=== PATIENT | male | born 1945 | race Caucasian/White ===

== ENCOUNTER 2016-03-23 11:51 | Outpatient (CLI) | payer MEDICARE, OTHER | END 2016-03-23 11:52 | disposition home or self-care (01) | DX: G47.10 Hypersomnia, unspecified (principal) | CPT/HCPCS: 99214; G0463 ==

== ENCOUNTER 2016-04-06 19:25 | Outpatient (CLI) | payer MEDICARE, OTHER | END 2016-04-06 19:26 | disposition home or self-care (01) | DX: Z53.9 Procedure and treatment not carried out, unspecified reason (principal) ==

== ENCOUNTER 2016-08-13 08:48 | Outpatient (CLI) | payer MEDICARE, OTHER ==
[2016-08-13 14:09] LABS: ALBUMIN/GLOBULIN RATIO 1.5 (1.0-2.2); BILIRUBIN,TOTAL 0.8 mg/dL (0.2-1.0); CALCIUM 9.3 mg/dL (8.5-10.3); CREATININE 0.7 mg/dL (0.6-1.2); POTASSIUM 3.8 mmol/L (3.5-5.0); TOTAL PROTEIN 6.7 g/dL (6.7-8.2)
== END 2016-08-13 08:49 | disposition home or self-care (01) ==
LOC: LAB.WCP 08:48
PROVIDERS: ATTEND Physician Assistant Medical
DX: G62.9 Polyneuropathy, unspecified (principal)
CPT/HCPCS: 36415; 80053; 82607; 84207; 84425

== ENCOUNTER 2016-09-30 08:14 | Outpatient (CLI) | payer MEDICARE, OTHER ==
--- NOTE | 2016-09-30 11:18 | XRAY Report ---
THREE VIEW RIGHT KNEE: 09/30/2016 CLINICAL HISTORY: Knee pain. FINDINGS: The osseous structures are intact. There is no fracture, focus of destruction or malalignm ent. The soft tissues are normal. A small suprapatellar joint effusion is incidental. IMPRESSION: SMALL SUPRAPATELLAR JOINT EFFUSION. NO ACUTE PROCESS. JOB #: [id number] EXT JOB #:[id number]
== END 2016-09-30 08:15 | disposition home or self-care (01) ==
LOC: DI 08:14
PROVIDERS: ATTEND Physician Assistant Medical
DX: M25.561 Pain in right knee (principal)

== ENCOUNTER 2016-10-01 08:45 | Outpatient (CLI) | payer MEDICARE, OTHER ==
[2016-10-01 13:45] LABS: HEMOGLOBIN A1C 0.82 g/dL
[2016-10-01 13:52] LABS: ALBUMIN/GLOBULIN RATIO 1.4 (1.0-2.2); BILIRUBIN,TOTAL 0.2 mg/dL (0.2-1.0); BUN - BLOOD UREA NITROGEN 26 mg/dL (6-20); CALCIUM 9.5 mg/dL (8.5-10.3); CARBON DIOXIDE - CO2 30 mmol/L (21-32); CHLORIDE 102 mmol/L (101-111); CHOL/HDL RATIO 4.6 (<5.0); CHOLESTEROL 246 mg/dL; CREATININE 0.8 mg/dL (0.6-1.2); GFR - MDRD 96 (>89); GLUCOSE 113 mg/dL (70-100); HDL CHOLESTEROL 54 mg/dL; LDL/HDL RATIO 2.2 (<3.6); POTASSIUM 4.8 mmol/L (3.5-5.0); SODIUM 138 mmol/L (135-145); TRIGLYCERIDES 373 mg/dL; VLDL CHOLESTEROL 75 mg/dL
[2016-10-01 13:54] LABS: BASOPHILS # (AUTO) 0.1 10^3/uL (0.0-0.1); BASOPHILS % (AUTO) 0.6 %; EOSINOPHILS # (AUTO) 0.3 10^3/uL (0.0-0.7); EOSINOPHILS % (AUTO) 3.5 %; HCT - HEMATOCRIT 47.9 % (42.0-52.0); HGB - HEMOGLOBIN 15.9 g/dL (14.0-18.0); LYMPHOCYTES # (AUTO) 2.2 10^3/uL (1.5-3.5); LYMPHOCYTES % (AUTO) 23.3 %; MEAN CORPUSCULAR HEMOGLOBIN 29.8 pg (27.0-31.0); MEAN CORPUSCULAR HGB CONC 33.3 g/dL (32.0-36.0); MEAN CORPUSCULAR VOLUME 89.5 fL (80.0-94.0); MEAN PLATELET VOLUME 7.6 fL (7.4-11.4); MONOCYTES # (AUTO) 0.9 10^3/uL (0.0-1.0); MONOCYTES % (AUTO) 9.1 %; NEUTROPHILS # (AUTO) 6.1 10^3/uL (1.5-6.6); NEUTROPHILS % (AUTO) 63.5 %; NUCLEATED RED BLOOD CELLS AUTO 0.1 /100WBC; RED BLOOD COUNT 5.35 10^6/uL (4.70-6.10); RED CELL DISTRIBUTION WIDTH 13.4 % (12.0-15.0); UNCORRECTED WHITE BLOOD COUNT 9.5 x10^3/uL; WHITE BLOOD COUNT 9.5 x10^3/uL (4.8-10.8)
== END 2016-10-01 08:46 ==
LOC: LAB.WCP 08:45
PROVIDERS: ATTEND Physician Assistant Medical
DX: I10 Essential (primary) hypertension (principal); Z12.5 Encounter for screening for malignant neoplasm of prostate; Z79.899 Other long term (current) drug therapy; E78.9 Disorder of lipoprotein metabolism, unspecified; R73.9 Hyperglycemia, unspecified
CPT/HCPCS: 36415; 80053; 80061; 83036; 84443; 85025; G0103; 84153

== ENCOUNTER 2016-11-17 14:18 | Outpatient (CLI) | payer MEDICARE, OTHER | END 2016-11-17 14:19 | LOC: LAB.WCP 14:18 | PROVIDERS: ATTEND Urology | DX: N40.1 Benign prostatic hyperplasia with lower urinary tract symptoms (principal) | CPT/HCPCS: 36415; 84153 ==

== ENCOUNTER 2017-04-15 12:49 | Outpatient (CLI) | payer MEDICARE, OTHER | END 2017-04-15 12:50 | disposition home or self-care (01) | LOC: DI 12:49 | PROVIDERS: ATTEND Physician Assistant Medical | DX: I51.7 Cardiomegaly (principal) | CPT/HCPCS: 93306 ==

== ENCOUNTER 2017-06-07 13:09 | Outpatient (CLI) | payer MEDICARE, OTHER | END 2017-06-07 13:10 | disposition home or self-care (01) | LOC: LAB 13:09 | PROVIDERS: ATTEND Orthopaedic Surgery | DX: Z01.812 Encounter for preprocedural laboratory examination (principal) | CPT/HCPCS: 36415; 86850; 86900; 86901 ==

== ENCOUNTER 2017-06-08 06:54 | Inpatient (IN) | payer MEDICARE, OTHER ==
[2017-06-08] MEDS ORDERED: ceFAZolin 2 GM/50 ML 2 GM/50 ML BAG IV ONE (07:05)
[2017-06-08] MEDS ORDERED: CELECOXIB 100 MG CAPSULE PO ONE (07:06)
[2017-06-08] MEDS ORDERED: LACTATED RINGERS 1,000 ML IV ONE (07:32)
[2017-06-08] MEDS ORDERED: EPINEPHrine 1 MG/ML AMP ONE (07:37)
[2017-06-08] MEDS ORDERED: ROPIVACAINE 0.5% PF 20 ML AMPULE ONE (07:37)
[2017-06-08] MEDS ORDERED: SODIUM CHLORIDE 0.9% 30 ML ONE (07:39)
[2017-06-08 07:53] LABS: BASOPHILS # (AUTO) 0.1 10^3/uL (0.0-0.1); BASOPHILS % (AUTO) 0.6 %; HGB - HEMOGLOBIN 15.6 g/dL (14.0-18.0); LYMPHOCYTES # (AUTO) 1.6 10^3/uL (1.5-3.5); LYMPHOCYTES % (AUTO) 18.4 %; MEAN CORPUSCULAR HEMOGLOBIN 30.1 pg (27.0-31.0); MEAN CORPUSCULAR HGB CONC 33.5 g/dL (32.0-36.0); MEAN CORPUSCULAR VOLUME 89.7 fL (80.0-94.0); MEAN PLATELET VOLUME 6.9 fL (7.4-11.4); MONOCYTES # (AUTO) 0.4 10^3/uL (0.0-1.0); MONOCYTES % (AUTO) 4.3 %; NEUTROPHILS # (AUTO) 6.7 10^3/uL (1.5-6.6); NEUTROPHILS % (AUTO) 76.7 %; PLT - PLATELET COUNT 336 10^3/uL (130-450); RED BLOOD COUNT 5.18 10^6/uL (4.70-6.10); RED CELL DISTRIBUTION WIDTH 13.4 % (12.0-15.0); WHITE BLOOD COUNT 8.8 x10^3/uL (4.8-10.8)
[2017-06-08 08:07] LABS: CALCIUM 9.4 mg/dL (8.5-10.3); CREATININE 0.6 mg/dL (0.6-1.2)
[2017-06-08] MEDS ORDERED: KETOROLAC 15 MG/ML VIAL IVP ONE (09:06)
[2017-06-08] MEDS ORDERED: MORPHINE PF 5 MG/10 ML AMP SUBQ ONE (09:07)
[2017-06-08] MEDS ORDERED: EPINEPHrine 1 MG/ML AMP IV ONE (09:09)
[2017-06-08] MEDS ORDERED: BUPIVACAINE 0.5% PF 30 ML VIAL SUBQ ONE (09:09)
[2017-06-08] MEDS ORDERED: ROPIVACAINE 0.2% PF 20 ML AMPULE SUBQ ONE (09:09)
[2017-06-08] MEDS: LACTATED RINGERS 1,000 ML IV ONE (09:12)
[2017-06-08] MEDS ORDERED: PROPOFOL 200 MG/20 ML VIAL IVP ONE (10:01)
[2017-06-08] MEDS ORDERED: LIDOCAINE-MPF 2% 5 ML VIAL IM ONE (10:01)
[2017-06-08] MEDS ORDERED: IPRATROPIUM/ALBUTEROL 3 ML NEB INH PRN (10:25)
--- NOTE | 2017-06-08 10:25 | OPERATIVE REPORT ---
Operative Report - General Admit Date: 06/08/17 Procedure Date: 06/08/17 Planned Procedure: right total knee replacement Pre-Op Diagnosis: Right knee osteoarthritis Procedure Performed: Right total knee arthroplasty Post Op Diagnosis: same - Procedure Note Primary Surgeon: uche Anesthesia Provider: Dr. Foy Anesthesia Technique: Combo spinal/epidural Estimated Blood Loss (mL): 50
[2017-06-08] MEDS ORDERED: ACETAMINOPHEN 1,000 MG/100 ML 100 ML IV PRN (10:26)
[2017-06-08] MEDS ORDERED: ACETAMINOPHEN 325 MG TABLET PO PRN (10:26)
[2017-06-08] MEDS ORDERED: PROCHLORPERAZINE 10 MG/2 ML VIAL IVP PRN (10:26)
[2017-06-08] MEDS ORDERED: ONDANSETRON 4 MG/2 ML VIAL IVP PRN (10:26)
[2017-06-08] MEDS ORDERED: BISACODYL 10 MG SUPP PR PRN (10:29)
[2017-06-08] MEDS ORDERED: SENNA 8.6 MG TABLET PO PRN (10:29)
[2017-06-08] MEDS ORDERED: ALBUTEROL NEB 2.5 MG/3 ML INH PRN (10:47)
[2017-06-08] MEDS: LACTATED RINGERS 1,000 ML IV SCH ×2 (11:15→19:54)
--- NOTE | 2017-06-08 12:54 | XRAY Report ---
TWO VIEW RIGHT KNEE: 06/08/2017 CLINICAL INDICATION: Postop. COMPARISON: 09/30/2016. FINDINGS: Frontal and lateral views of the right knee demonstrate a total knee replacement in place. Subcutaneous gas is seen. There is no evidence of acute fracture or hardware complication. IMPRESSION: EXPECTED POSTOPERATIVE APPEARANCE OF RIGHT KNEE REPLACEMENT. TD: 06/08/2017 12:54
[2017-06-08] MEDS: MORPHINE 2 MG/ML SYRINGE IVP PRN ×2 (13:17→19:50)
[2017-06-08] MEDS: SODIUM CHLORIDE FLUSH 0.9% 10 ML SYRINGE IVP PRN ×2 (13:18→18:30)
--- NOTE | 2017-06-08 14:01 | OPERATIVE REPORT ---
DATE OF SERVICE: 06/08/2017 Physician: Mague Pina MD PREOPERATIVE DIAGNOSIS: Right knee osteoarthritis. POSTOPERATIVE DIAGNOSIS: Right knee osteoarthritis. PROCEDURE PERFORMED: Right cemented total knee arthroplasty. OPERATING SURGEON: Mague Pina MD ANESTHESIA: Spinal and sedation by Dr. Fernandez INDICATIONS FOR SURGERY: The patient is a 71-year-old male with progressive osteoarthritis of his right knee. He has failed conservative care over an extended period of time and presents now for total knee arthroplasty. FINDINGS AT SURGERY: Patient was noted to have range of motion 0-120 degrees with normal ligament stability. At open surgery, he was found to have an effusion of the knee and fairly aggressive osteophytes on the medial aspect of the femur and tibia, and lesser osteophytes on the lateral side. His medial meniscus was essentially absent. Lateral meniscus was present as a healthy meniscus. Cruciate ligaments were intact. Chondral surfaces showed [id number] articulation on the medial aspect with both femur and tibial plateau involved. The patient's bone density was good. DESCRIPTION OF OPERATIVE PROCEDURE: The patient was taken to the operating room, given a spinal anesthetic in the supine position on the OR table. His limb was sterilely prepped and draped in standard fashion. Surgical timeout was undertaken. The patient's knee was then exsanguinated and a curved medial incision was made, followed by a medial parapatellar incision, and dissection carried down to the joint. Fluid was evacuated from the joint and a careful reflection was done of the posteromedial tissues on the tibia back to the posterior corner, and a resection of some of the fat pad was done to gain exposure. The anterior horn of the lateral meniscus was excised and the ACL was excised. The knee was then able to be flexed and the patella everted and the knee exposed. A rongeur was used to remove osteophytes from around the patella and the knee, and a central medullary hole was made in the femur for the distal cutting block application and this was applied and the distal cut made. Following this, the sizer block was applied and initial sizing was for an 8, but after making the initial anterior cut we sized down to a size 7. The 4-in-1 cuts were then made and extra osteophytes were removed. The retractors were then positioned around the tibial plateau and the proximal tibia block was applied with the external tower and alignment guide. Once the block was fixed in place, the proximal resection was done and it seemed that the PCL insertion had been destabilized so the remaining PCL was excised. Posterior osteophytes were checked for, there were none of substance on the femur. The knee was sized for a size E tibial baseplate, with the baseplate trial secured with pins and reaming and broaching performed, followed by trial reduction of the implants. Once this was successfully achieved, the patella was exposed and a conservative 8 mm resection was done of the patellar surface. Sizing was for a size 32 patella and recreating with the thickness of the patella with the 8.5 thickness. Trial components were removed. The knee was flushed and irrigated, and prepared for cementing of the implants, which were drawn into the field cementing first the tibial tray and then inserting the old medial congruent poly size 12 liner followed by cementing the femoral component, size 7, and ultimately cementing the patellar component with cement removal from all components at the periphery with the knee in extension and proving excellent range of motion and stability. The cement was allowed to harden. The knee was then flushed and irrigated beginning with a bath of dilute iodine solution that was allowed to sit in the knee, followed by flushing with the pulse lavage and then infiltrating with a cocktail of components of Marcaine and Toradol and pain medicine infiltrated in the tissues. Following this, the closure of the knee was undertaken after deflating the tourniquet. Bleeding was controlled and then closure undertaken with FiberWire suture interrupted in the medial retinaculum, followed by 0 and 2-0 Vicryl in the subcutaneous tissues and 3-0 Monocryl suture in skin. A silver-containing dressing was applied. The patient's knee was overwrapped with padding and ABDs and an Isidoro wrap, and he was taken to recovery room in stable condition. ESTIMATED BLOOD LOSS: About 50 mL COMPLICATIONS: None. SPONGE AND NEEDLE COUNTS: Correct. COMPONENTS USED: Size 7 Persona normal femur, a size E tibial tray, a 12 mm medial congruent poly, and a size 32 x 8.5 mm polyethylene patella. TD: 06/08/2017 14:01
[2017-06-08] MEDS ORDERED: HYDROmorphone 1 MG/ML CARPUJECT IVP ONE (14:33)
[2017-06-08] MEDS: SODIUM CHLORIDE FLUSH 0.9% 10 ML SYRINGE IVP SCH (16:35)
[2017-06-08] MEDS: ceFAZolin 2 GM/50 ML 2 GM/50 ML BAG IV SCH (17:27)
[2017-06-08] MEDS: HYDROcod/ACETAM 5/325 MG TABLET PO PRN (17:27)
[2017-06-08] MEDS: HYDROmorphone 1 MG/ML CARPUJECT IVP PRN ×2 (18:30→23:38)
[2017-06-08] MEDS ORDERED: BUDESONIDE 0.5 MG/2 ML NEB INH SCH (19:00)
[2017-06-08] MEDS: GABAPENTIN 300 MG CAPSULE PO SCH (20:37)
[2017-06-09] MEDS: ceFAZolin 2 GM/50 ML 2 GM/50 ML BAG IV SCH (01:59)
[2017-06-09] MEDS: HYDROcod/ACETAM 5/325 MG TABLET PO PRN ×5 (02:02→19:31)
[2017-06-09] MEDS: SODIUM CHLORIDE FLUSH 0.9% 10 ML SYRINGE IVP SCH ×5 (03:11→15:51)
[2017-06-09] MEDS: HYDROmorphone 1 MG/ML CARPUJECT IVP PRN ×4 (05:03→16:00)
[2017-06-09] MEDS: SODIUM CHLORIDE FLUSH 0.9% 10 ML SYRINGE IVP PRN (05:03)
[2017-06-09 06:13] LABS: BASOPHILS % (AUTO) 0.3 %; EOSINOPHILS % (AUTO) 1.4 %; HGB - HEMOGLOBIN 12.3 g/dL (14.0-18.0); LYMPHOCYTES % (AUTO) 17.7 %; MEAN CORPUSCULAR HEMOGLOBIN 29.6 pg (27.0-31.0); MEAN CORPUSCULAR VOLUME 89.9 fL (80.0-94.0); MEAN PLATELET VOLUME 7.5 fL (7.4-11.4); MONOCYTES % (AUTO) 12.3 %; NEUTROPHILS % (AUTO) 68.3 %; PLT - PLATELET COUNT 264 10^3/uL (130-450); RED BLOOD COUNT 4.15 10^6/uL (4.70-6.10); RED CELL DISTRIBUTION WIDTH 13.4 % (12.0-15.0)
[2017-06-09 06:16] LABS: CALCIUM 8.4 mg/dL (8.5-10.3); CREATININE 0.6 mg/dL (0.6-1.2)
[2017-06-09 06:18] LABS: ABNORMAL LYMPHS % (MANUAL) 0 %; BAND NEUTROPHILS % (MANUAL) 0 %
[2017-06-09] MEDS: LACTATED RINGERS 1,000 ML IV SCH (06:43)
[2017-06-09] MEDS: PANTOPRAZOLE 40 MG TABLET PO SCH (06:44)
[2017-06-09 06:49] LABS: EOSINOPHILS # (MANUAL) 0.1 10^3/uL (0-0.7); LYMPHOCYTES # (MANUAL) 2.2 10^3/uL (1.5-3.5); LYMPHOCYTES % (MANUAL) 11 %; MONOCYTES # (MANUAL) 1.4 10^3/uL (0.0-1.0); NEUTROPHILS # (MANUAL) 10.2 10^3/uL (1.5-6.6); NEUTROPHILS % (MANUAL) 73 %
[2017-06-09 06:51] LABS: DIFFERENTIAL COMMENT MANUAL DIFFERENTIAL; PLATELET ESTIMATE, MANUAL NORMAL (130-450,000) (NORMAL); PLATELET MORPHOLOGY NORMAL APPEARANCE (NORMAL); RBC MORPHOLOGY (MULTIPLE) 1+ STOMATOCYTES (NORMAL)
--- NOTE | 2017-06-09 07:20 | PROVIDER PROGRESS NOTE ---
Subjective - General Admit Date: 06/08/17 Procedure Date: 06/08/17 Post Op Days: 1 Procedure Performed: right total knee arthroplasty - Review of Systems Wound/Incisions: positive: Dressing dry and intact Musculoskeletal: positive: Joint pain Skin: positive: No symptoms Psychiatric: positive: No symptoms Objective - Patient Data Reviewed Vital Signs: Yes Vital Signs: Vital Signs x48h Temp Pulse Resp BP Pulse Ox 06/09/17 04:50 36.6 C 67 16 113/70 94 06/08/17 23:45 36.7 C 63 16 117/62 93 Weight: Weight 06/07/17 06/08/17 06/09/17 23:59 23:59 23:59 Weight (kg) 76.8 kg Intake & Output: Intake and Output Totals x24h 06/07/17 06/08/17 06/09/17 23:59 23:59 23:59 Intake Total 1675 1011.667 Output Total 1275 600 Balance 400 411.667 - Lab Results Lab Results: 06/09/17 05:36 06/09/17 05:36 Other Lab Results: Lab Results x24hrs 06/09/17 06/09/17 06/08/17 Range/Units 05:36 05:36 07:45 WBC 14.0 H (4.8-10.8) x10^3/uL RBC 4.15 L (4.70-6.10) 10^6/uL Hgb 12.3 L (14.0-18.0) g/dL Hct 37.3 L (42.0-52.0) % MCV 89.9 (80.0-94.0) fL MCH 29.6 (27.0-31.0) pg MCHC 33.0 (32.0-36.0) g/dL RDW 13.4 (12.0-15.0) % Plt Count 264 (130-450) 10^3/uL MPV 7.5 (7.4-11.4) fL Neut # Not Reportable (1.5-6.6) 10^3/uL Lymph # Not Reportable (1.5-3.5) 10^3/uL [place] # Not Reportable (0.0-1.0) 10^3/uL Eos # Not Reportable (0.0-0.7) 10^3/uL Baso # Not Reportable (0.0-0.1) 10^3/uL Absolute Nucleated RBC Not Reportable x10^3/uL Total Counted 100 Band Neuts % (Manual) 0 (0 - 10) % Reactive Lymphs % (Man) 5 % Abnorm Lymph % (Manual) 0 % Nucleated RBC % Not Reportable /100WBC Neutrophils # (Manual) 10.2 H (1.5-6.6) 10^3/uL Lymphocytes # (Manual) 2.2 (1.5-3.5) 10^3/uL Monocytes # (Manual) 1.4 H (0.0-1.0) 10^3/uL Eosinophils # (Manual) 0.1 (0-0.7) 10^3/uL Basophils # (Manual) 0.0 (0-0.1) 10^3/uL Differential Comment MANUAL DIFFERENTIAL Platelet Estimate NORMAL (130-450,000) (NORMAL) Platelet Morphology NORMAL APPEARANCE (NORMAL) RBC Morph Micro Appear 1+ STOMATOCYTES (NORMAL) Sodium 133 L 137 (135-145) mmol/L Potassium 3.8 4.3 (3.5-5.0) mmol/L Chloride 101 102 (101-111) mmol/L Carbon Dioxide 27 26 (21-32) mmol/L Anion Gap 5.0 L 9.0 (6-13) BUN 16 17 (6-20) mg/dL Creatinine 0.6 0.6 (0.6-1.2) mg/dL Estimated GFR (MDRD) 133 133 (>89) Glucose 135 H 142 H (70-100) mg/dL Calcium 8.4 L 9.4 (8.5-10.3) mg/dL 06/08/17 Range/Units 07:45 WBC 8.8 (4.8-10.8) x10^3/uL RBC 5.18 (4.70-6.10) 10^6/uL Hgb 15.6 (14.0-18.0) g/dL Hct 46.5 (42.0-52.0) % MCV 89.7 (80.0-94.0) fL MCH 30.1 (27.0-31.0) pg MCHC 33.5 (32.0-36.0) g/dL RDW 13.4 (12.0-15.0) % Plt Count 336 (130-450) 10^3/uL MPV 6.9 L (7.4-11.4) fL Neut # 6.7 H (1.5-6.6) 10^3/uL Lymph # 1.6 (1.5-3.5) 10^3/uL [place] # 0.4 (0.0-1.0) 10^3/uL Eos # 0.0 (0.0-0.7) 10^3/uL Baso # 0.1 (0.0-0.1) 10^3/uL Absolute Nucleated RBC 0.00 x10^3/uL Total Counted Band Neuts % (Manual) (0 - 10) % Reactive Lymphs % (Man) % Abnorm Lymph % (Manual) % Nucleated RBC % 0.0 /100WBC Neutrophils # (Manual) (1.5-6.6) 10^3/uL Lymphocytes # (Manual) (1.5-3.5) 10^3/uL Monocytes # (Manual) (0.0-1.0) 10^3/uL Eosinophils # (Manual) (0-0.7) 10^3/uL Basophils # (Manual) (0-0.1) 10^3/uL Differential Comment Platelet Estimate (NORMAL) Platelet Morphology (NORMAL) RBC Morph Micro Appear (NORMAL) Sodium (135-145) mmol/L Potassium (3.5-5.0) mmol/L Chloride (101-111) mmol/L Carbon Dioxide (21-32) mmol/L Anion Gap (6-13) BUN (6-20) mg/dL Creatinine (0.6-1.2) mg/dL Estimated GFR (MDRD) (>89) Glucose (70-100) mg/dL Calcium (8.5-10.3) mg/dL - Imaging Results Radiology Imaging: positive: EMP read indepedently - Current Medications Current Medications: Current Medications Generic Name Dose Route Start Last Admin Trade Name Freq PRN Reason Stop Dose Admin Acetaminophen/Hydrocodone Bitart 1 tab 06/08/17 10:29 06/09/17 06:44 [place] 5/325 PO 1 tab Q4HR PRN Administration PAIN Gabapentin 300 mg 06/08/17 21:00 06/08/17 20:37 Neurontin PO 300 mg QPM WYATT Administration Hydromorphone HCl 1 mg 06/08/17 15:12 06/09/17 05:03 Dilaudid Inj Carp IVP 1 mg Q4HR PRN Administration PAIN Lactated Ringer's 1,000 mls @ 100 mls/hr 06/08/17 11:00 06/09/17 06:43 Lr IV 100 mls/hr .Q10H WYATT Administration Morphine Sulfate 2 mg 06/08/17 10:29 06/08/17 19:50 Morphine IVP 2 mg Q2HR PRN Administration PAIN Pantoprazole Sodium 40 mg 06/09/17 07:00 06/09/17 06:44 Protonix PO 40 mg QDAC WYATT Administration Sodium Chloride 10 ml 06/08/17 17:00 06/09/17 03:11 Normal Saline Flush 0.9% IVP Not Given 0100,0900,1700 WYATT Sodium Chloride 10 ml 06/08/17 10:26 06/09/17 05:03 Normal Saline Flush 0.9% IVP 10 ml PRN PRN Administration NEEDED PER PROVIDER ORDERS - Physical Exam Wound/Incisions: positive: Dressing dry and intact General Appearance: positive: No acute distress ENT: positive: ENT inspection nml Respiratory: positive: No respiratory distress Abdomen: positive: Non-tender Neurologic/Psychiatric: positive: Oriented x3, CN's nml (2-12), Motor nml, Sensation nml, Mood/affect nml Impression/Plan - Problem List Problem List: POd #1 Pain control OK Pt to progress with PT at this time. decrease IV fluids.
[2017-06-09] MEDS: MULTIVITAMIN TABLET PO SCH (08:15)
[2017-06-09] MEDS: ASPIRIN 325 MG TABLET PO SCH ×2 (08:15→16:00)
[2017-06-09] MEDS: CYANOCOBALAMIN 500 MCG TABLET PO SCH (08:15)
[2017-06-09] MEDS: LOSARTAN 50 MG TABLET PO SCH (08:16)
[2017-06-09] MEDS: CETIRIZINE 10 MG TABLET PO SCH (08:16)
[2017-06-09] MEDS: KETOROLAC 30 MG/ML VIAL IVP PRN (14:08)
[2017-06-09] MEDS: GABAPENTIN 300 MG CAPSULE PO SCH (19:31)
[2017-06-10] MEDS: HYDROcod/ACETAM 5/325 MG TABLET PO PRN ×6 (00:13→23:41)
[2017-06-10] MEDS: SODIUM CHLORIDE FLUSH 0.9% 10 ML SYRINGE IVP SCH ×4 (00:21→18:13)
[2017-06-10 06:09] LABS: BASOPHILS # (AUTO) 0.1 10^3/uL (0.0-0.1); BASOPHILS % (AUTO) 0.9 %; EOSINOPHILS # (AUTO) 0.7 10^3/uL (0.0-0.7); EOSINOPHILS % (AUTO) 5.8 %; HGB - HEMOGLOBIN 12.5 g/dL (14.0-18.0); LYMPHOCYTES # (AUTO) 2.1 10^3/uL (1.5-3.5); LYMPHOCYTES % (AUTO) 17.1 %; MEAN CORPUSCULAR HEMOGLOBIN 29.5 pg (27.0-31.0); MEAN CORPUSCULAR HGB CONC 32.9 g/dL (32.0-36.0); MEAN CORPUSCULAR VOLUME 89.8 fL (80.0-94.0); MEAN PLATELET VOLUME 7.6 fL (7.4-11.4); MONOCYTES # (AUTO) 1.5 10^3/uL (0.0-1.0); MONOCYTES % (AUTO) 12.4 %; NEUTROPHILS # (AUTO) 7.7 10^3/uL (1.5-6.6); NEUTROPHILS % (AUTO) 63.8 %; PLT - PLATELET COUNT 232 10^3/uL (130-450); RED BLOOD COUNT 4.24 10^6/uL (4.70-6.10); RED CELL DISTRIBUTION WIDTH 13.2 % (12.0-15.0)
[2017-06-10] MEDS: PANTOPRAZOLE 40 MG TABLET PO SCH (06:17)
[2017-06-10] MEDS: KETOROLAC 30 MG/ML VIAL IVP PRN (06:58)
[2017-06-10] MEDS: SODIUM CHLORIDE FLUSH 0.9% 10 ML SYRINGE IVP PRN ×2 (06:59→23:40)
--- NOTE | 2017-06-10 08:44 | PROVIDER PROGRESS NOTE ---
Subjective - General Admit Date: 06/08/17 Procedure Date: 06/08/17 Post Op Days: 2 Procedure Performed: right total knee arthroplasty - Review of Systems Wound/Incisions: positive: Healing well Gastrointestinal: positive: No symptoms Genitourinary: positive: No symptoms Musculoskeletal: positive: Joint pain Skin: positive: No symptoms Psychiatric: positive: No symptoms Objective - Patient Data Reviewed Vital Signs: Yes Vital Signs: Vital Signs x48h Temp Pulse Resp BP Pulse Ox 06/10/17 07:39 37 C 62 16 129/63 95 06/10/17 06:00 37.2 C 64 16 122/66 96 Weight: Weight 06/08/17 06/09/17 06/10/17 23:59 23:59 23:59 Weight (kg) 76.8 kg Intake & Output: Intake and Output Totals x24h 06/08/17 06/09/17 06/10/17 23:59 23:59 23:59 Intake Total 1675 1631.667 Output Total 1275 1800 350 Balance 400 -168.333 -350 - Lab Results Lab Results: 06/10/17 06:00 06/09/17 05:36 Other Lab Results: Lab Results x24hrs 06/10/17 Range/Units 06:00 WBC 12.0 H (4.8-10.8) x10^3/uL RBC 4.24 L (4.70-6.10) 10^6/uL Hgb 12.5 L (14.0-18.0) g/dL Hct 38.1 L (42.0-52.0) % MCV 89.8 (80.0-94.0) fL MCH 29.5 (27.0-31.0) pg MCHC 32.9 (32.0-36.0) g/dL RDW 13.2 (12.0-15.0) % Plt Count 232 (130-450) 10^3/uL MPV 7.6 (7.4-11.4) fL Neut # 7.7 H (1.5-6.6) 10^3/uL Lymph # 2.1 (1.5-3.5) 10^3/uL [place] # 1.5 H (0.0-1.0) 10^3/uL Eos # 0.7 (0.0-0.7) 10^3/uL Baso # 0.1 (0.0-0.1) 10^3/uL Absolute Nucleated RBC 0.00 x10^3/uL Nucleated RBC % 0.0 /100WBC - Current Medications Current Medications: Current Medications Generic Name Dose Route Start Last Admin Trade Name Freq PRN Reason Stop Dose Admin Acetaminophen/Hydrocodone Bitart 1 tab 06/08/17 10:29 06/10/17 04:16 [place] 5/325 PO 1 tab Q4HR PRN Administration PAIN Aspirin 325 mg 06/09/17 09:00 06/09/17 16:00 Horacio PO 325 mg BIDWM WYATT Administration Cetirizine HCl 10 mg 06/09/17 09:00 06/09/17 08:16 Zyrtec PO 10 mg DAILY WYATT Administration Cyanocobalamin 1,000 mcg 06/09/17 09:00 06/09/17 08:15 Vitamin B-12 PO 1,000 mcg DAILY WYATT Administration Gabapentin 300 mg 06/08/17 21:00 06/09/17 19:31 Neurontin PO 300 mg QPM WYATT Administration Hydromorphone HCl 1 mg 06/08/17 15:12 06/09/17 16:00 Dilaudid Inj Carp IVP 1 mg Q4HR PRN Administration PAIN Ketorolac Tromethamine 30 mg 06/09/17 13:51 06/10/17 06:58 Toradol Inj IVP 06/10/17 13:50 30 mg Q6HR PRN Administration PAIN Losartan Potassium 50 mg 06/09/17 09:00 06/09/17 08:16 Cozaar PO 50 mg DAILY WYATT Administration Morphine Sulfate 2 mg 06/08/17 10:29 06/08/17 19:50 Morphine IVP 2 mg Q2HR PRN Administration PAIN Multivitamins 1 tab 06/09/17 08:00 06/09/17 08:15 Theragran PO 1 tab DAILYWM WYATT Administration Pantoprazole Sodium 40 mg 06/09/17 07:00 06/10/17 06:17 Protonix PO 40 mg QDAC WYATT Administration Senna 17.2 mg 06/08/17 10:29 06/09/17 15:50 Senokot PO 17.2 mg Q12H PRN Administration Constipation Sodium Chloride 10 ml 06/08/17 17:00 06/10/17 00:21 Normal Saline Flush 0.9% IVP 10 ml 0100,0900,1700 WYATT Administration Sodium Chloride 10 ml 06/08/17 10:26 06/10/17 06:59 Normal Saline Flush 0.9% IVP 10 ml PRN PRN Administration NEEDED PER PROVIDER ORDERS - Physical Exam Wound/Incisions: positive: Healing well General Appearance: positive: No acute distress Skin: positive: No rash, Warm, Dry Extremities: positive: Joint swelling Neurologic/Psychiatric: positive: Motor nml, Sensation nml, Mood/affect nml Impression/Plan - Problem List Problem List: POD #2: Pt's knee is healing well. Swelling and pain decreased. wound clean and dry.
[2017-06-10] MEDS: CETIRIZINE 10 MG TABLET PO SCH (08:57)
[2017-06-10] MEDS: ASPIRIN 325 MG TABLET PO SCH ×2 (08:57→18:12)
[2017-06-10] MEDS: MULTIVITAMIN TABLET PO SCH (08:57)
[2017-06-10] MEDS: CYANOCOBALAMIN 500 MCG TABLET PO SCH (08:57)
[2017-06-10] MEDS: LOSARTAN 50 MG TABLET PO SCH (08:57)
[2017-06-10] MEDS: HYDROmorphone 1 MG/ML CARPUJECT IVP PRN ×2 (11:27→18:12)
--- NOTE | 2017-06-10 16:55 | Discharge Plan ---
Discharge Plan Disposition: Home, Self Care Condition: Good Prescriptions: HYDROcod/ACETAM 5/325 [[place] 5/325] 1 tab PO Q4HR PRN #60 tablet PRN Reason: Pain Aspirin [Horacio] 325 mg PO BIDWM #60 tablet Bisacodyl Supp [Dulcolax Supp] 10 mg [place] Q12H PRN #20 supp PRN Reason: Constipation Walker [Ultra-Light Rollator] 1 each MC ONCE #1 each Diet: Regular Activity Restrictions: Wt Bearing as Tolerated Shower Restrictions: Yes (knee to be covered) Driving Restrictions: Yes (no driving) Assistance Devices: Walker Weight Bearing: weight bear as tolerated Additional Instructions or Follow Up instructions: Keep dressing clean and dry. Do not remove. Patient to work on range of motion of the knee and ankle motion. No Smoking: If you smoke, Please STOP! Call for help. Follow-up with: Mague Pina MD [Provider Admit Priv/Credential] -
[2017-06-10] MEDS: GABAPENTIN 300 MG CAPSULE PO SCH (20:02)
[2017-06-11] MEDS: HYDROmorphone 1 MG/ML CARPUJECT IVP PRN ×2 (01:04→09:04)
[2017-06-11] MEDS: SODIUM CHLORIDE FLUSH 0.9% 10 ML SYRINGE IVP PRN (01:04)
[2017-06-11] MEDS: HYDROcod/ACETAM 5/325 MG TABLET PO PRN ×2 (05:26→09:10)
[2017-06-11] MEDS: PANTOPRAZOLE 40 MG TABLET PO SCH (06:04)
[2017-06-11] MEDS: CETIRIZINE 10 MG TABLET PO SCH (09:04)
[2017-06-11] MEDS: SODIUM CHLORIDE FLUSH 0.9% 10 ML SYRINGE IVP SCH (09:04)
[2017-06-11] MEDS: LOSARTAN 50 MG TABLET PO SCH (09:04)
[2017-06-11] MEDS: ASPIRIN 325 MG TABLET PO SCH (09:04)
[2017-06-11] MEDS: CYANOCOBALAMIN 500 MCG TABLET PO SCH (09:04)
[2017-06-11] MEDS: MULTIVITAMIN TABLET PO SCH (09:04)
[2017-06-11 10:20] VITALS: BP 119/67
--- NOTE | 2017-06-18 10:17 | DISCHARGE SUMMARY ---
Physician: Mague Pina MD DATE OF ADMISSION: 06/08/2017 DATE OF DISCHARGE: 06/11/2017 ADMISSION DIAGNOSES: Right knee osteoarthritis. His operative procedure was on 06/08/2017, a right total knee replacement arthroplasty. REASON FOR ADMISSION: Patient is a 71-year-old male with progressive severe osteoarthritis of his knee, who ultimately has elected to proceed with total knee arthroplasty. Patient has documented failure of nonoperative management and has severe functional limitations. Patient's history and physical exam are documented in his admit record. HOSPITAL COURSE: Patient was admitted and he underwent surgery on 06/08/2017 with successful total knee arthroplasty. In the postoperative period, he was placed on the floor, receiving standard care post knee arthroplasty including IV antibiotics, IV pain medication and oral supplementation, DVT prophylaxis with aspirin and early PT mobilization out of bed. During the course of care, patient had standard recovery and, by 06/11/2017, was able to be discharged to home. At this point, his wound was healing well. A silver-containing dressing was on his wound. He was using a walker. He was discharged to home with hydrocodone for pain, and also aspirin for DVT prophylaxis and stool softeners. Followup was to be in the orthopedic clinic in 1 week. TD: 06/18/2017 10:16
== END 2017-06-11 10:20 | disposition home or self-care (01) | DRG 470 ==
LOC: MS2 06:54
PROVIDERS: ADMIT Orthopaedic Surgery; ATTEND Orthopaedic Surgery
PROC: 0SRC069 Replacement of Right Knee Joint with Oxidized Zirconium on Polyethylene Synthetic Substitute, Cemented, Open Approach (ICD-10-PCS; principal; 2017-06-08 08:00)
DX: M17.11 Unilateral primary osteoarthritis, right knee (principal); J45.909 Unspecified asthma, uncomplicated; I10 Essential (primary) hypertension; E78.5 Hyperlipidemia, unspecified; K21.9 Gastro-esophageal reflux disease without esophagitis; Z79.51 Long term (current) use of inhaled steroids; Z79.899 Other long term (current) drug therapy
CPT/HCPCS: 36415; 80048; 85025; 94640

== ENCOUNTER 2017-07-22 08:34 | Outpatient (CLI) | payer MEDICARE, OTHER ==
[2017-07-22 12:32] LABS: BASOPHILS # (AUTO) 0.1 10^3/uL (0.0-0.1); BASOPHILS % (AUTO) 0.6 %; EOSINOPHILS # (AUTO) 1.2 10^3/uL (0.0-0.7); EOSINOPHILS % (AUTO) 11.3 %; HGB - HEMOGLOBIN 15.1 g/dL (14.0-18.0); LYMPHOCYTES # (AUTO) 2.8 10^3/uL (1.5-3.5); LYMPHOCYTES % (AUTO) 25.1 %; MEAN CORPUSCULAR HEMOGLOBIN 30.9 pg (27.0-31.0); MEAN CORPUSCULAR HGB CONC 33.7 g/dL (32.0-36.0); MEAN CORPUSCULAR VOLUME 91.6 fL (80.0-94.0); MEAN PLATELET VOLUME 7.8 fL (7.4-11.4); MONOCYTES # (AUTO) 0.7 10^3/uL (0.0-1.0); MONOCYTES % (AUTO) 6.2 %; NEUTROPHILS # (AUTO) 6.3 10^3/uL (1.5-6.6); NEUTROPHILS % (AUTO) 56.8 %; PLT - PLATELET COUNT 335 10^3/uL (130-450); RED BLOOD COUNT 4.89 10^6/uL (4.70-6.10); RED CELL DISTRIBUTION WIDTH 13.9 % (12.0-15.0); WHITE BLOOD COUNT 11.1 x10^3/uL (4.8-10.8)
[2017-07-22 13:08] LABS: ALBUMIN 3.7 g/dL (3.2-5.5); ALBUMIN/GLOBULIN RATIO 1.2 (1.0-2.2); ALKALINE PHOSPHATASE 68 IU/L (42-121); ALT ALANINE AMINOTRANSFERASE 17 IU/L (10-60); AST ASPARTATE AMINOTRANSFERASE 18 IU/L (10-42); BILIRUBIN,TOTAL 0.7 mg/dL (0.2-1.0); BUN - BLOOD UREA NITROGEN 23 mg/dL (6-20); CALCIUM 9.1 mg/dL (8.5-10.3); CARBON DIOXIDE - CO2 27 mmol/L (21-32); CHLORIDE 103 mmol/L (101-111); CHOL/HDL RATIO 3.5 (<5.0); CHOLESTEROL 194 mg/dL; CREATININE 0.5 mg/dL (0.6-1.2); GFR - MDRD 164 (>89); GLUCOSE 108 mg/dL (70-100); HDL CHOLESTEROL 56 mg/dL; LDL CHOLESTEROL,CALCULATED 94 mg/dL; LDL/HDL RATIO 1.7 (<3.6); SODIUM 136 mmol/L (135-145); TOTAL PROTEIN 6.7 g/dL (6.7-8.2); VLDL CHOLESTEROL 44 mg/dL
[2017-07-23 13:58] LABS: HEPATITIS C ANTIBODY NON-REACTIVE (NON-REACTIVE)
== END 2017-07-22 08:35 | disposition home or self-care (01) ==
LOC: LAB.WCP 08:34
PROVIDERS: ATTEND Physician Assistant Medical
DX: E78.9 Disorder of lipoprotein metabolism, unspecified (principal); E53.8 Deficiency of other specified B group vitamins; I10 Essential (primary) hypertension; Z11.59 Encounter for screening for other viral diseases
CPT/HCPCS: 36415; 80053; 80061; 82607; 83721; 85025; 86803

== ENCOUNTER 2017-07-27 09:59 | Outpatient (CLI) | payer MEDICARE, OTHER ==
--- NOTE | 2017-07-28 10:02 | DEXA Report ---
Procedure Date: 07/27/2017 Accession Number: [id number] / [id number] Procedure: DEX - Dexa Spine and/or Hip CPT Code: FULL RESULT: CLINICAL INDICATION: BONE DISEASE TECHNIQUE: Dual energy x-ray absorptiometry (DXA) was performed on a Clinverse System. Regions measured are the AP Spine, femoral neck, and if needed forearm. COMPARISON: None. In accordance with the International Society for Clinical Densitometry (ISCD) guidelines, data from previous exams may be reanalyzed using current recommendations and techniques. This is done to allow a more accurate basis for comparison with the current study. FINDINGS: The data for the lumbar spine is as follows: BMD (g/cm/cm) T-SCORE Z-SCORE REGION L1 1.083 -0.6 -0.1 L2 1.193 -0.4 0.2 L3 1.172 -0.6 0.0 L4 1.164 -0.6 -0.1 TOTAL 1.155 -0.5 0.0 NOTE: All evaluable vertebrae are used for classification The data for the hip is as follows: BMD (g/cm/cm) T-SCORE Z-SCORE REGION Neck 0.946 -1.0 0.3 TOTAL 1.099 0.0 0.7 NOTE: The femoral neck or total proximal femur, whichever is lowest, is used for classification. IMPRESSION: THE WHO CLASSIFICATION BASED ON THE INTERNATIONAL REFERENCE STANDARD IS NORMAL. THE FRACTURE RISK IS NOT INCREASED. RECOMMENDATION: Patients with diagnosis of osteoporosis or osteopenia should have regular bone mineral density assessment. For those eligible for Medicare, routine testing is allowed once every 2 years. Testing frequency can be increased for patients who have rapidly progressing disease or for those who are receiving medical therapy to restore bone mass. COMMENT: World Health Organization (WHO) definitions for osteoporosis and osteopenia: NORMAL BMD: T-score at -1.0 or higher, fracture risk is low OSTEOPENIA BMD: T-score between -1.0 and -2.5, fracture risk is increased. OSTEOPOROSIS BMD: T-score at -2.5 or lower, fracture risk is high. National Osteoporosis Foundation recommends: 1. Obtain adequate dietary calcium (at least 1200 mg per day) and vitamin D (400-800 international units per day). 2. Participate, as appropriate, in regular weightbearing and muscle-strengthening exercise. 3. Avoid tobacco use and reduce alcohol and caffeine intake. 4. For more detailed information see the website at www.NOF.org.
== END 2017-07-27 10:00 | disposition home or self-care (01) ==
LOC: DI 09:59
PROVIDERS: ATTEND Family Medicine
DX: M89.9 Disorder of bone, unspecified (principal)
CPT/HCPCS: 77080

== ENCOUNTER 2017-11-12 09:06 | Emergency (ER) | payer MEDICARE, OTHER ==
[2017-11-12] MEDS ORDERED: IPRATROPIUM/ALBUTEROL 3 ML NEB INH STA (09:31)
--- NOTE | 2017-11-12 09:43 | ED Physician Documentation ---
PD HPI DYSPNEA - Stated complaint Stated Complaint: SOA - Chief complaint Chief Complaint: Resp - History obtained from History obtained from: Patient, Family (spouse) - History of Present Illness Timing - duration: Days (3 or 4 days) Timing - details: Still present Associated symptoms: Cough (slight, nonproductive), Wheezing. No: Fever, Chest pain / discomfort Similar symptoms before: Diagnosis (History of asthma.) - Treatment prior to arrival Treatment prior to arrival: Took 40 mg Prednisone this morning, in addition to albuterol nebulizer. - Additional information Additional information: The patient is a 72-year-old male with a history of asthma, who presents with dyspnea that has been ongoing for the past 3 or 4 days. He has been using his albuterol nebulizer and inhaler without relief. This morning he took 40 mg of prednisone, which had been left over from a previous prescription. He reports nonproductive cough. He denies fever, chest pain, nausea or vomiting. He does report sore throat from coughing. He has long history of asthma, with his last episode this bad occurring several years ago. He has never been a cigarette smoker. He denies history of heart disease. Review of Systems Constitutional: denies: Fever Nose: denies: Congestion Throat: reports: Sore throat Cardiac: denies: Chest pain / pressure Respiratory: reports: Dyspnea, Cough, Wheezing GI: denies: Abdominal Pain, Nausea, Vomiting : denies: Dysuria Skin: denies: Rash Musculoskeletal: denies: Extremity swelling Neurologic: denies: Focal weakness, Numbness, Headache PD PAST MEDICAL HISTORY - Past Medical History Past Medical History: Yes Cardiovascular: None Respiratory: Asthma Endocrine/Autoimmune: None GI: GERD : Benign prostate hypertrophy HEENT: None Psych: Panic attacks Musculoskeletal: None Derm: None - Past Surgical History Past Surgical History: Yes General: Colonoscopy, EGD Ortho: Knee replacement, Spine surgery - Present Medications Home Medications: Ambulatory Orders Medication Instructions Recorded Confirmed Albuterol Sulfate [Proair Hfa 2 puffs INH Q4H PRN 06/07/17 06/08/17 Inhaler] Cetirizine [ZyrTEC] 10 mg PO DAILY 06/07/17 06/08/17 Gabapentin 300 mg PO QPM 06/07/17 06/08/17 Losartan [Cozaar] 50 mg PO DAILY 06/07/17 06/08/17 Mecobalamin [B-12] 2,500 mcg PO DAILY 06/07/17 06/08/17 Multivit-Min/FA/Lycopen/Lutein 1 each PO DAILY 06/07/17 06/07/17 [Centravites 50 Plus Tablet] Pantoprazole [Protonix] 40 mg PO DAILY 06/07/17 06/08/17 Walker [Ultra-Light Rollator] 1 each MC ONCE #1 each 06/10/17 Aspirin [Horacio] 325 mg PO BIDWM #60 tablet 06/11/17 Bisacodyl Supp [Dulcolax Supp] 10 mg [place] Q12H PRN #20 supp 06/11/17 HYDROcod/ACETAM 5/325 [[place] 5/325] 1 tab PO Q4HR PRN #60 tablet 06/11/17 predniSONE [Prednisone] 30 mg PO DAILY #15 tablet 11/12/17 - Allergies Allergies/Adverse Reactions: Allergies Allergy/AdvReac Type Severity Reaction Status Date / Time Penicillins AdvReac Mild Unknown Verified 06/08/17 07:16 - Social History Does the pt smoke?: No Smoking Status: Never smoker Does the pt drink ETOH?: No Does the pt have substance abuse?: No - Immunizations Immunizations are current?: Yes PD ED PE NORMAL - Vitals Vital signs reviewed: Yes (hypertensive, tachypneic, and tachycardic.) - General General: Alert and oriented X 3, Well developed/nourished, Other (Appears dyspneic, sitting up at the bedside.) - HEENT HEENT: Atraumatic, Moist mucous membranes, Pharynx benign - Neck Neck: Supple, no meningeal sign, No adenopathy, No JVD - Cardiac Cardiac: Other (Rapid rate, regular rhythm.) - Respiratory Respiratory: Other (Diffuse inspiratory and expiratory wheezes, with prolonged expiratory phase.) - Abdomen Abdomen: Soft, Non tender, Other (Rotund abdomen.) - Back Back: No CVA TTP - Derm Derm: No rash - Extremities Extremities: No edema, No calf tenderness / cord - Neuro Neuro: Alert and oriented X 3, No motor deficit, No sensory deficit Results - Vitals Vitals: Oxygen O2 Source Room air Oxygen Flow Rate 2 - Labs Labs: Microbiology 11/12/17 09:55 Group A Strep Throat Culture - Final Throat MIXED OROPHARYNGEAL DOLLY PRESENT. NO BETA STREP PRESENT IN CULTURE. Laboratory Tests 11/12/17 09:55 Group A Strep Rapid Negative PD MEDICAL DECISION MAKING - ED course Complexity details: reviewed results, re-evaluated patient, considered differential, d/w patient, d/w family ED course: The patient's presentation is significant for acute exacerbation of asthma. His presentation does not suggest pneumonia, congestive heart failure, or pulmonary embolus. Treatment in the emergency department included administration of DuoNeb nebulizer and dexamethasone 5 mg orally. His symptoms markedly improved with the above treatment, and reactive auscultation reveals much improved air movement with near complete resolution of his wheezing. He is being discharged with prescription for prednisone, five-day course. He has nebulizer and inhaler at home. I do not think antibiotics are clinically indicated. I discussed with the patient and his ongoing outpatient treatment and follow-up, as well as potentially worrisome signs or symptoms that should prompt reevaluation in the emergency department. - Sepsis Event Vital Signs: Oxygen O2 Source Room air Oxygen Flow Rate 2 Departure - Departure Disposition: 01 Home, Self Care Clinical Impression: Asthma exacerbation Qualifiers: Asthma severity: unspecified severity Asthma persistence: unspecified Qualified Code(s): J45.901 - Unspecified asthma with (acute) exacerbation Condition: Stable Instructions: ED Bronchitis Asthmatic Follow-Up: Eliza Moralez PA-C [Primary Care Provider] - Prescriptions: predniSONE [Prednisone] 30 mg PO DAILY #15 tablet Comments: Continue using your nebulizer and inhaler as previously prescribed. Take prednisone daily for the next 5 days as prescribed. Follow-up with your primary physician within 1 week. Call to schedule appointment. Return to the emergency department if you develop increasing difficulty breathing, or otherwise worsening symptoms. Discharge Date/Time: 11/12/17 11:37
[2017-11-12] MEDS ORDERED: DEXAMETHASONE 10 MG/ML VIAL PO STA ×2 (09:45→09:54)
[2017-11-12 11:37] VITALS: BP 141/81
== END 2017-11-12 11:37 | disposition home or self-care (01) ==
LOC: ED 09:06
DX: J45.901 Unspecified asthma with (acute) exacerbation (principal); Z79.82 Long term (current) use of aspirin; Z96.659 Presence of unspecified artificial knee joint
CPT/HCPCS: 87070; 87430; 94640; 99283

== ENCOUNTER 2017-12-28 10:26 | Outpatient (CLI) | payer MEDICARE, OTHER ==
--- NOTE | 2017-12-28 11:24 | XRAY Report ---
Reason: COCCYGEAL PAIN Procedure Date: 12/28/2017 Accession Number: [id number] / [id number] Procedure: XR - Sacrum/Coccyx CPT Code: FULL RESULT: EXAM: SACRUM AND COCCYX RADIOGRAPHY EXAM DATE: 12/28/2017 10:42 AM. HISTORY: Coccygeal pain. COMPARISONS: None. TECHNIQUE: 2 views. FINDINGS: Alignment: Normal. The sacrum and coccyx are normally aligned. Bones: Normal. No fracture or bone lesion. Joints: Normal. The sacroiliac joints and visualized hips are within normal limits. Moderate degenerative disk and facet changes are noted throughout the lumbar spine, greatest at L1-L2 and L2-L3. Soft Tissues: Unremarkable. IMPRESSION: Normal sacrum and coccyx radiography. Degenerative lumbar spine changes. RADIA
== END 2017-12-28 10:27 | disposition home or self-care (01) ==
LOC: DI 10:26
PROVIDERS: ATTEND Family Medicine
DX: M51.36 Other intervertebral disc degeneration, lumbar region (principal); M47.9 Spondylosis, unspecified
CPT/HCPCS: 72220

== ENCOUNTER 2018-02-24 13:42 | Outpatient (CLI) | payer MEDICARE, OTHER ==
[2018-02-24 19:30] LABS: BASOPHILS # (AUTO) 0.1 10^3/uL (0.0-0.1); BASOPHILS % (AUTO) 0.8 %; EOSINOPHILS # (AUTO) 0.2 10^3/uL (0.0-0.7); EOSINOPHILS % (AUTO) 2.9 %; HGB - HEMOGLOBIN 14.3 g/dL (14.0-18.0); LYMPHOCYTES # (AUTO) 2.2 10^3/uL (1.5-3.5); LYMPHOCYTES % (AUTO) 25.9 %; MEAN CORPUSCULAR HEMOGLOBIN 30.7 pg (27.0-31.0); MEAN CORPUSCULAR HGB CONC 33.2 g/dL (32.0-36.0); MEAN CORPUSCULAR VOLUME 92.4 fL (80.0-94.0); MEAN PLATELET VOLUME 7.2 fL (7.4-11.4); MONOCYTES # (AUTO) 0.7 10^3/uL (0.0-1.0); MONOCYTES % (AUTO) 8.3 %; NEUTROPHILS # (AUTO) 5.2 10^3/uL (1.5-6.6); NEUTROPHILS % (AUTO) 62.1 %; PLT - PLATELET COUNT 277 10^3/uL (130-450); RED BLOOD COUNT 4.66 10^6/uL (4.70-6.10); RED CELL DISTRIBUTION WIDTH 13.2 % (12.0-15.0); WHITE BLOOD COUNT 8.4 x10^3/uL (4.8-10.8)
== END 2018-02-24 23:59 | disposition home or self-care (01) ==
LOC: LAB.WCP 13:42
PROVIDERS: ATTEND Orthopaedic Surgery
DX: J45.50 Severe persistent asthma, uncomplicated (principal)
CPT/HCPCS: 36415; 85025

== ENCOUNTER 2018-06-08 08:35 | Outpatient (CLI) | payer MEDICARE, OTHER | END 2018-06-08 08:36 | disposition home or self-care (01) | LOC: LAB.WCP 08:35 | PROVIDERS: ATTEND Urology | DX: Z12.5 Encounter for screening for malignant neoplasm of prostate (principal) | CPT/HCPCS: 36415; G0103; 84153 ==

== ENCOUNTER 2018-07-21 23:01 | Emergency (ER) | payer MEDICARE, OTHER ==
[2018-07-21] MEDS ORDERED: HYDROcod/ACETAM 5/325 MG TABLET PO STA (23:33)
--- NOTE | 2018-07-21 23:38 | ED Physician Documentation ---
PD HPI LOWER EXT INJURY - Stated complaint Stated Complaint: L KNEE PAIN - Chief complaint Chief Complaint: Ext Problem - History obtained from History obtained from: Patient, Family - History of Present Illness PD HPI LOW EXT INJURY LOCATION: Left, Knee Where injury occurred: Other (on an airplane) Timing - onset: How many weeks ago (1) Timing - duration: Weeks (1) Timing - details: Gradual onset Pain level max: 8 Pain level now: 8 Improved by: Rest, Ice, Immobilization Worsened by: Moving, Palpating Associated symptoms: Swelling. No: Weakness, Numbness, Tingling - Additional information Additional information: 72-year-old male states that the beverage cart on an airplane ran into his left knee. Steadily worsening since that time. This was 1 week ago. Increased pain tonight. Has an appointment with his doctor tomorrow for x-rays. Review of Systems Constitutional: denies: Fever Musculoskeletal: denies: Neck pain, Back pain Neurologic: denies: Numbness PD PAST MEDICAL HISTORY - Past Medical History Cardiovascular: None Respiratory: Asthma Endocrine/Autoimmune: None GI: GERD : Benign prostate hypertrophy HEENT: None Psych: Panic attacks Musculoskeletal: None Derm: None - Past Surgical History Past Surgical History: Yes General: Colonoscopy, EGD Ortho: Knee replacement, Spine surgery - Present Medications Home Medications: Ambulatory Orders Medication Instructions Recorded Confirmed Albuterol Sulfate [Proair Hfa 2 puffs INH Q4H PRN 06/07/17 06/08/17 Inhaler] Cetirizine [ZyrTEC] 10 mg PO DAILY 06/07/17 06/08/17 Gabapentin 300 mg PO QPM 06/07/17 06/08/17 Losartan [Cozaar] 50 mg PO DAILY 06/07/17 06/08/17 Mecobalamin [B-12] 2,500 mcg PO DAILY 06/07/17 06/08/17 Multivit-Min/FA/Lycopen/Lutein 1 each PO DAILY 06/07/17 06/07/17 [Centravites 50 Plus Tablet] Pantoprazole [Protonix] 40 mg PO DAILY 06/07/17 06/08/17 Walker [Ultra-Light Rollator] 1 each MC ONCE #1 each 06/10/17 Aspirin [Horacio] 325 mg PO BIDWM #60 tablet 06/11/17 Bisacodyl Supp [Dulcolax Supp] 10 mg [place] Q12H PRN #20 supp 06/11/17 HYDROcod/ACETAM 5/325 [[place] 5/325] 1 tab PO Q4HR PRN #60 tablet 06/11/17 predniSONE [Prednisone] 30 mg PO DAILY #15 tablet 11/12/17 Hydrocodone/Acetaminophen 1 - 2 each PO Q6H PRN #14 tablet 07/22/18 [Hydrocodon-Acetaminophen 5-325] - Allergies Allergies/Adverse Reactions: Allergies Allergy/AdvReac Type Severity Reaction Status Date / Time Penicillins AdvReac Mild Unknown Verified 07/21/18 23:22 - Social History Does the pt smoke?: No Smoking Status: Never smoker Does the pt drink ETOH?: No Does the pt have substance abuse?: No - Immunizations Immunizations are current?: Yes PD ED PE NORMAL - Vitals Vital signs reviewed: Yes - General General: Alert and oriented X 3, No acute distress - HEENT HEENT: Moist mucous membranes - Neck Neck: Supple, no meningeal sign - Derm Derm: Warm and dry - Extremities Extremities: Other (L knee - Somewhat limited exam secondary to pain. Tender palpation along the medial joint line. ACL, MCL, PCL, LCL are intact. Unable to tolerate meniscus testing. Neurovascularly intact. Small effusion) - Neuro Neuro: Alert and oriented X 3 Results - Vitals Vitals: Vital Signs - 24 hr 07/21/18 07/22/18 23:17 00:45 Temperature 36.3 C L Heart Rate 86 74 Respiratory 16 17 Rate Blood Pressure 132/71 H 137/72 H O2 Saturation 95 95 Oxygen O2 Source Room air - Rads (name of study) L knee xray Radiology: Prelim report reviewed, EMP read contemporaneously, See rad report (Mild medial compartment degenerative changes. Small joint effusion. No acute bony abnormality. ) PD MEDICAL DECISION MAKING - ED course Complexity details: reviewed results, re-evaluated patient, considered differential, d/w patient, d/w family ED course: 72-year-old male status post a knee injury 1 week ago. Possible meniscus injury? Has a small joint effusion on x-ray and physical exam. Placed in an [place] wrap and given a cane. Will prescribe pain medication for home and follow- up with his doctor and orthopedics. Patient counseled regarding signs and symptoms for which I believe and urgent re-evaluation would be necessary. Patient with good understanding of and agreement to plan and is comfortable going home at this time This document was made in part using voice recognition software. While efforts are made to proofread this document, sound alike and grammatical errors may occur. We did discuss an articulating knee brace, patient declines this at this time Departure - Departure Disposition: 01 Home, Self Care Clinical Impression: Effusion, left knee Condition: Good Instructions: ED Effusion Knee Follow-Up: Mague Pina MD [Provider Admit Priv/Credential] - Within 1 week Prescriptions: Hydrocodone/Acetaminophen [Hydrocodon-Acetaminophen 5-325] 1 - 2 each PO Q6H PRN #14 tablet PRN Reason: pain Comments: Limit your weightbearing on the left knee and utilize the cane on the right hand to help decrease the weight on the knee. Follow-up with orthopedics for further evaluation and care. Do not drink alcohol or drive while on narcotic pain medicine. Note that many narcotic pain relievers also contain tylenol/acetaminophen. Please ensure that your total dose of acetaminophen from all sources does not exceed 3 grams (3000mg) per day. You may constipated on this medication, take a stool softener such as "Colace" twice a day while you are on it. Also recommend a [id number]-cco-[id number] laxative such as senna or MiraLAX any day that you do not have a bowel movement. If you received narcotic pain medication in the emergency department, do not drive or operate machinery for the next 24 hours. Discharge Date/Time: 07/22/18 00:57
--- NOTE | 2018-07-22 00:24 | XRAY Report ---
Reason: injury Procedure Date: 07/22/2018 Accession Number: [id number] / [id number] Procedure: XR - Knee 4 View LT CPT Code: FULL RESULT: EXAM: LEFT KNEE RADIOGRAPHY. EXAM DATE: 07/21/2018 11:51 PM. CLINICAL HISTORY: Injury. COMPARISON: KNEE 2 VIEW RT 06/08/2017 12:04 PM. TECHNIQUE: 3 views. FINDINGS: Bones: Normal. No fractures or bone lesions. Joints: Mild narrowing of the medial joint compartment with small marginal osteophytes. Small joint effusion. Soft Tissues: Normal. No soft tissue swelling. IMPRESSION: Mild medial compartment degenerative changes. Small joint effusion. No acute bony abnormality. RADIA
[2018-07-22 00:46] VITALS: BP 137/72
== END 2018-07-22 00:57 | disposition home or self-care (01) ==
LOC: ED 23:01
DX: M25.462 Effusion, left knee (principal); W22.8XXA Striking against or struck by other objects, initial encounter; Y92.813 Airplane as the place of occurrence of the external cause
CPT/HCPCS: 73564; 99283; A9270

== ENCOUNTER 2018-10-27 10:00 | Outpatient (CLI) | payer MEDICARE, OTHER ==
--- NOTE | 2018-10-27 12:17 | XRAY Report ---
Reason: LEFT SHOULDER PAIN Procedure Date: 10/27/2018 Accession Number: [id number] / [id number] Procedure: WCP - Shoulder 3 View LT CPT Code: FULL RESULT: EXAM: LEFT SHOULDER RADIOGRAPHY EXAM DATE: 10/27/2018 10:25 AM. CLINICAL HISTORY: Left shoulder pain. COMPARISON: None. TECHNIQUE: 3 views. FINDINGS: Bones: Normal. No fracture or bone lesion. Joints: The glenohumeral and acromioclavicular joints are normally aligned. Mild acromioclavicular degenerative changes. No significant glenohumeral degenerative changes. Soft tissues: The visualized hemithorax is unremarkable. No soft tissue swelling. IMPRESSION: 1. No left shoulder fracture or dislocation seen. 2. Mild acromioclavicular degenerative changes. RADIA
--- NOTE | 2018-10-27 12:18 | XRAY Report ---
Reason: LEFT THUMB PAIN Procedure Date: 10/27/2018 Accession Number: [id number] / [id number] Procedure: WCP - Finger(s) LT CPT Code: FULL RESULT: EXAM: LEFT FIRST DIGIT RADIOGRAPHY EXAM DATE: 10/27/2018 10:25 AM. CLINICAL HISTORY: LEFT THUMB PAIN. COMPARISON: None. TECHNIQUE: 3 views. FINDINGS: Bones: Normal. No fracture or bone lesion. Joints: Normal. No subluxations. Soft Tissues: Tiny soft tissue calcification anterior to the IP joint appears benign and possibly capsular. No soft tissue swelling. IMPRESSION: Negative left thumb. RADIA
== END 2018-10-27 23:59 | disposition home or self-care (01) ==
LOC: DI.WCP 10:00 → EDSTATUS 13:34 → DI.WCP 23:59
PROVIDERS: ATTEND Physician Assistant Medical
DX: M19.012 Primary osteoarthritis, left shoulder (principal); M79.645 Pain in left finger(s)
CPT/HCPCS: 73140

== ENCOUNTER 2019-01-17 11:10 | Emergency (ER) | payer MEDICARE, OTHER ==
--- NOTE | 2019-01-17 12:01 | ED Physician Documentation ---
History of Present Illness - Stated complaint Stated Complaint: DIZZY - Chief complaint Chief Complaint: Neuro - Additonal information Additional information: This is a 73-year-old male with a history of asthma, who presents with dizziness. Patient states he woke up this morning and he felt a little bit lightheaded, he also noticed that his ears were very warm and red. He went downstairs and began eating a bowl of cereal and lightheaded and slightly nauseated as well so he went in to get checked out at clinic, and a sent him here for evaluation. He denies any chest pain or shortness of breath. He denies any vomiting, and no syncope. He has had vertigo in the past but he states this feels different as he is not having the room spinning around him he just felt a little bit lightheaded. No fever cough, ear pain, abdominal pain. No black or bloody stools. Review of Systems Constitutional: denies: Fever Nose: denies: Rhinorrhea / runny nose Cardiac: denies: Chest pain / pressure Respiratory: denies: Dyspnea GI: reports: Nausea. denies: Abdominal Pain, Vomiting : denies: Dysuria Skin: denies: Rash Neurologic: reports: Other (lightheaded) Immunocompromised: denies: Immunocompromised PD PAST MEDICAL HISTORY - Past Medical History Cardiovascular: None Respiratory: Asthma Endocrine/Autoimmune: None GI: GERD : Benign prostate hypertrophy HEENT: None Psych: Panic attacks Musculoskeletal: None Derm: None - Past Surgical History Past Surgical History: Yes General: Colonoscopy, EGD Ortho: Knee replacement, Spine surgery - Present Medications Home Medications: Ambulatory Orders Medication Instructions Recorded Confirmed Albuterol Sulfate [Proair Hfa 2 puffs INH Q4H PRN 06/07/17 06/08/17 Inhaler] Cetirizine [ZyrTEC] 10 mg PO DAILY 06/07/17 06/08/17 Gabapentin 300 mg PO QPM 06/07/17 06/08/17 Losartan [Cozaar] 50 mg PO DAILY 06/07/17 06/08/17 Mecobalamin [B-12] 2,500 mcg PO DAILY 06/07/17 06/08/17 Multivit-Min/FA/Lycopen/Lutein 1 each PO DAILY 06/07/17 06/07/17 [Centravites 50 Plus Tablet] Pantoprazole [Protonix] 40 mg PO DAILY 06/07/17 06/08/17 Walker [Ultra-Light Rollator] 1 each MC ONCE #1 each 06/10/17 Aspirin [Horacio] 325 mg PO BIDWM #60 tablet 06/11/17 Bisacodyl Supp [Dulcolax Supp] 10 mg [place] Q12H PRN #20 supp 06/11/17 HYDROcod/ACETAM 5/325 [[place] 5/325] 1 tab PO Q4HR PRN #60 tablet 06/11/17 predniSONE [Prednisone] 30 mg PO DAILY #15 tablet 11/12/17 Hydrocodone/Acetaminophen 1 - 2 each PO Q6H PRN #14 tablet 07/22/18 [Hydrocodon-Acetaminophen 5-325] - Allergies Allergies/Adverse Reactions: Allergies Allergy/AdvReac Type Severity Reaction Status Date / Time Penicillins AdvReac Mild Unknown Verified 01/17/19 11:15 - Social History Does the pt smoke?: No Smoking Status: Never smoker Does the pt drink ETOH?: No Does the pt have substance abuse?: No - Immunizations Immunizations are current?: Yes PD ED PE NORMAL - Vitals Vital signs reviewed: Yes - General General: Alert and oriented X 3, No acute distress - HEENT HEENT: Atraumatic, PERRL - Neck Neck: Supple, no meningeal sign - Cardiac Cardiac: RRR, No murmur - Respiratory Respiratory: No respiratory distress, Clear bilaterally - Abdomen Abdomen: Normal bowel sounds, Soft, Non tender, Non distended - Derm Derm: Warm and dry - Extremities Extremities: No deformity - Neuro Neuro: Alert and oriented X 3, enrollment manager 2-12 intact, No motor deficit, No sensory deficit, Normal speech, Other (No dysmetria, normal narrow based gait, Negative [place]-Hallpike bilaterally) - Psych Psych: Normal mood, Normal affect Results - Vitals Vitals: Vital Signs - 24 hr 01/17/19 01/17/19 01/17/19 11:15 11:35 12:23 Temperature 36.8 C 36.5 C 36.5 C Heart Rate 71 66 67 Respiratory 17 18 16 Rate Blood Pressure 169/77 H 156/85 H 155/78 H O2 Saturation 99 99 98 01/17/19 13:18 Temperature 36.6 C Heart Rate 68 Respiratory 16 Rate Blood Pressure 112/77 O2 Saturation 98 Oxygen O2 Source Room air - EKG (time done) 11:54 Other comments: Other comments (Rate 66, rhythm sinus, there is no ST segment elevation or depression, no abnormal T wave inversions, intervals are within normal limits, borderline low voltage in the precordial leads) - Labs Labs: Laboratory Tests 01/17/19 01/17/19 01/17/19 11:40 11:40 11:40 WBC 5.7 RBC 5.19 Hgb 15.3 Hct 45.9 MCV 88.4 MCH 29.5 MCHC 33.3 RDW 12.5 Plt Count 259 MPV 9.1 Neut # (Auto) 3.4 Lymph # (Auto) 1.7 [place] # (Auto) 0.6 Eos # (Auto) 0.1 Baso # (Auto) 0.0 Absolute Nucleated RBC 0.00 Nucleated RBC % 0.0 Sodium 138 Potassium 4.3 Chloride 102 Carbon Dioxide 27 Anion Gap 9.0 BUN 17 Creatinine 0.8 Estimated GFR (MDRD) 95 Glucose 106 H POC Whole Bld Glucose Calcium 9.0 Total Bilirubin 0.5 AST 18 ALT 17 Alkaline Phosphatase 71 Troponin I High Sens Total Protein 7.1 Albumin 4.3 Globulin 2.8 Albumin/Globulin Ratio 1.5 Lipase 35 Urine Color YELLOW Urine Clarity CLEAR Urine pH 6.0 Ur Specific [place] 1.020 Urine Protein NEGATIVE Urine Glucose (UA) NEGATIVE Urine Ketones NEGATIVE Urine Occult Blood NEGATIVE Urine Nitrite NEGATIVE Urine Bilirubin NEGATIVE Urine Urobilinogen 0.2 (NORMAL) Ur Leukocyte Esterase NEGATIVE Ur Microscopic Review NOT INDICATED Urine Culture Comments NOT INDICATED 01/17/19 01/17/19 11:40 12:06 WBC RBC Hgb Hct MCV MCH MCHC RDW Plt Count MPV Neut # (Auto) Lymph # (Auto) [place] # (Auto) Eos # (Auto) Baso # (Auto) Absolute Nucleated RBC Nucleated RBC % Sodium Potassium Chloride Carbon Dioxide Anion Gap BUN Creatinine Estimated GFR (MDRD) Glucose POC Whole Bld Glucose 102 H Calcium Total Bilirubin AST ALT Alkaline Phosphatase Troponin I High Sens 3.0 Total Protein Albumin Globulin Albumin/Globulin Ratio Lipase Urine Color Urine Clarity Urine pH Ur Specific [place] Urine Protein Urine Glucose (UA) Urine Ketones Urine Occult Blood Urine Nitrite Urine Bilirubin Urine Urobilinogen Ur Leukocyte Esterase Ur Microscopic Review Urine Culture Comments - Rads (name of study) CXR 2 view Radiology: Other POCUS ECHO Radiology: Other (Grossly normal LV ejection fraction, no pericardial effusion) PD MEDICAL DECISION MAKING - ED course Complexity details: considered differential (ACS, dysrhythmia, electrolyte abnormality, UTI, pneumonia, viral syndrome, Dehydration, orthostasis, vertigo) ED course: On evaluation patient is well-appearing, vital signs are notable for tension. His physical exam is unrevealing and his neurologic exam is normal. He does not have any chest pain or shortness of breath, his EKG shows no signs of ischemia or dysrhythmia, does show some borderline low voltage, but on bedside ultrasound there is no pericardial effusion, and a grossly normal ejection fraction. His chest x-ray is unremarkable. Given his lack of chest pain, his negative high- sensitivity troponin in the setting of 6 hours of symptoms, and his reassuring EKG, ACS is highly unlikely. What he is describing does not sound like vertigo, and he has a negative [place]- Hallpike. His labs are reassuring without any significant electrolyte disturbance, his urine is negative for infection. He is feeling well and asymptomatic at this time. He is able to get up and ambulate without symptoms, he is feeling well. I discussed that I am not sure exactly the cause of his symptoms was, but given his reassuring work-up today I think is appropriate for close outpatient follow- up. I discussed return precautions, and if he is having any chest pain, shortness of breath, passing out, or other concerning symptoms he will return to the emergency department. Departure - Departure Disposition: 01 Home, Self Care Clinical Impression: Lightheaded Condition: Good Instructions: ED Dizziness UKO Follow-Up: Eliza Moralez PA-C [Primary Care Provider] - Within 1 week Comments: You were seen today for some lightheadedness and nausea. I did not see signs of abnormalities with your heart or lungs, your electrolytes and blood counts are reassuring today, I do not see signs of urinary tract infection. I am not sure what caused your symptoms, and I am glad that you are feeling better. Please hydrate well and If you are having any further lightheadedness, avoid doing activities that could cause you harm if you were to pass out, such as driving, climbing at heights. If you are having any chest pain, shortness of breath, passing out, or other concerning symptoms return to the emergency department. Otherwise please follow-up with your primary care provider
[2019-01-17 12:03] LABS: BASOPHILS % (AUTO) 0.3 %; EOSINOPHILS # (AUTO) 0.1 10^3/uL (0.0-0.7); EOSINOPHILS % (AUTO) 0.9 %; HGB - HEMOGLOBIN 15.3 g/dL (14.0-18.0); LYMPHOCYTES # (AUTO) 1.7 10^3/uL (1.5-3.5); LYMPHOCYTES % (AUTO) 28.8 %; MEAN CORPUSCULAR HEMOGLOBIN 29.5 pg (27.0-31.0); MEAN CORPUSCULAR HGB CONC 33.3 g/dL (32.0-36.0); MEAN CORPUSCULAR VOLUME 88.4 fL (80.0-94.0); MEAN PLATELET VOLUME 9.1 fL (7.4-11.4); MONOCYTES # (AUTO) 0.6 10^3/uL (0.0-1.0); MONOCYTES % (AUTO) 9.6 %; NEUTROPHILS # (AUTO) 3.4 10^3/uL (1.5-6.6); NEUTROPHILS % (AUTO) 59.9 %; PLT - PLATELET COUNT 259 10^3/uL (130-450); RED BLOOD COUNT 5.19 10^6/uL (4.70-6.10); RED CELL DISTRIBUTION WIDTH 12.5 % (12.0-15.0); WHITE BLOOD COUNT 5.7 x10^3/uL (4.8-10.8)
[2019-01-17 12:09] LABS: BILIRUBIN,URINE NEGATIVE (NEGATIVE); GLUCOSE, URINE (UA) NEGATIVE (NEGATIVE); KETONES,URINE (UA) NEGATIVE (NEGATIVE); LEUKOCYTE ESTERASE, URINE NEGATIVE (NEGATIVE); NITRITE,URINE NEGATIVE (NEGATIVE); OCCULT BLOOD,URINE NEGATIVE (NEGATIVE); PROTEIN,URINE NEGATIVE (NEGATIVE); UROBILINOGEN,URINE 0.2 (NORMAL) E.U./dL (NORMAL)
[2019-01-17 12:10] LABS: CLARITY,URINE CLEAR (CLEAR)
[2019-01-17 12:13] LABS: ALBUMIN 4.3 g/dL (3.2-5.5); ALBUMIN/GLOBULIN RATIO 1.5 (1.0-2.2); BILIRUBIN,TOTAL 0.5 mg/dL (0.2-1.0); CREATININE 0.8 mg/dL (0.6-1.2); TOTAL PROTEIN 7.1 g/dL (6.7-8.2)
--- NOTE | 2019-01-17 12:50 | XRAY Report ---
Reason: Lightheaded Procedure Date: 01/17/2019 Accession Number: [id number] / [id number] Procedure: XR - Chest 2 View X-Ray CPT Code: 65904 Final Report FULL RESULT: EXAM: CHEST RADIOGRAPHY EXAM DATE: 01/17/2019 12:24 PM. CLINICAL HISTORY: Lightheaded. COMPARISON: CHEST 2 VIEW PA/LAT 11/30/2017 1:48 PM. TECHNIQUE: 2 views. FINDINGS: Lungs/Pleura: No focal opacities evident. No pleural effusion. No pneumothorax. Normal volumes. Mediastinum: Heart and mediastinal contours are unremarkable. Other: None. IMPRESSION: No focal consolidation. RADIA
[2019-01-17 13:55] VITALS: BP 140/73
== END 2019-01-17 13:56 | disposition home or self-care (01) ==
LOC: ED 11:10
DX: R42 Dizziness and giddiness (principal); R11.0 Nausea
CPT/HCPCS: 36415; 71046; 80053; 81001; 81003; 83690; 84484; 85025; 87086; 93005; 99284

== ENCOUNTER 2020-02-21 08:00 | Outpatient (CLI) | payer MEDICARE, OTHER ==
[2020-03-05 15:28] LABS: H. PYLORIS ANTIGEN STL NEGATIVE (Negative)
== END 2020-02-21 23:59 | disposition home or self-care (01) ==
LOC: LAB.R 08:00
PROVIDERS: ATTEND Family Medicine
DX: K30 Functional dyspepsia (principal); K21.9 Gastro-esophageal reflux disease without esophagitis; R10.9 Unspecified abdominal pain
CPT/HCPCS: 87338

== ENCOUNTER 2020-04-17 08:00 | Outpatient (CLI) | payer MEDICARE, OTHER ==
[2020-04-17 12:48] LABS: ALBUMIN 4.3 g/dL (3.2-5.5); ALBUMIN/GLOBULIN RATIO 1.4 (1.0-2.2); ALKALINE PHOSPHATASE 61 IU/L (42-121); ALT ALANINE AMINOTRANSFERASE 18 IU/L (10-60); AST ASPARTATE AMINOTRANSFERASE 18 IU/L (10-42); BILIRUBIN,TOTAL 0.5 mg/dL (0.2-1.0); BUN - BLOOD UREA NITROGEN 20 mg/dL (6-20); CALCIUM 9.5 mg/dL (8.5-10.3); CARBON DIOXIDE - CO2 24 mmol/L (21-32); CHLORIDE 104 mmol/L (101-111); CHOLESTEROL 237 mg/dL; CREATININE 0.8 mg/dL (0.6-1.2); GFR - MDRD 95 (>89); GLUCOSE 127 mg/dL (70-100); HDL CHOLESTEROL 47 mg/dL; LDL CHOLESTEROL,CALCULATED 153 mg/dL; LDL/HDL RATIO 3.3 (<3.6); POTASSIUM 4.3 mmol/L (3.5-5.0); SODIUM 136 mmol/L (135-145); TOTAL PROTEIN 7.4 g/dL (6.7-8.2); TRIGLYCERIDES 184 mg/dL; VLDL CHOLESTEROL 37 mg/dL
[2020-04-17 13:05] LABS: ESTIMATED AVERAGE GLUCOSE 131 mg/dL (70-100); HEMOGLOBIN A1c% 6.2 % (4.27-6.07)
== END 2020-04-17 23:59 | disposition home or self-care (01) ==
LOC: LAB.WCP 08:00
PROVIDERS: ATTEND Physician Assistant Medical
DX: E78.5 Hyperlipidemia, unspecified (principal); R73.9 Hyperglycemia, unspecified
CPT/HCPCS: 36415; 80053; 80061; 83036; 83721

== ENCOUNTER 2020-09-27 08:57 | Outpatient (CLI) | payer MEDICARE, OTHER | END 2020-09-27 23:59 | disposition home or self-care (01) | LOC: LAB.WCP 08:57 | PROVIDERS: ATTEND Urology | DX: Z12.5 Encounter for screening for malignant neoplasm of prostate (principal) | CPT/HCPCS: 36415; G0103; 84153 ==

== ENCOUNTER 2020-11-19 07:00 | Outpatient (CLI) | payer MEDICARE, OTHER | END 2020-11-19 23:59 | disposition home or self-care (01) | LOC: LAB 07:00 | PROVIDERS: ATTEND Physician Assistant Medical | DX: J45.909 Unspecified asthma, uncomplicated (principal); Z20.822 Contact with and (suspected) exposure to COVID-19 ==

== ENCOUNTER 2020-11-19 16:28 | Outpatient (CLI) | payer MEDICARE, OTHER ==
--- NOTE | 2020-11-20 00:54 | XRAY Report ---
PROCEDURE: Chest 2 View X-Ray INDICATIONS: ASTHMA TECHNIQUE: 2 view(s) of the chest. COMPARISON: None. FINDINGS: Surgical changes and devices: None. Lungs and pleura: No pleural effusions or pneumothorax. Lungs are clear. Mediastinum: Mediastinal contours are normal. Heart size is normal. Bones and chest wall: No suspicious bony abnormalities. Soft tissues appear unremarkable. IMPRESSION: No evidence acute pulmonary process. Reviewed by: Sea Blanca MD on 11/20/2020 12:53 AM PDT Approved by: Sea Blanca MD on 11/20/2020 12:53 AM PDT Station ID: [id number]
== END 2020-11-19 16:29 | disposition home or self-care (01) ==
LOC: DI.N 16:28
PROVIDERS: ATTEND Physician Assistant Medical
DX: J45.909 Unspecified asthma, uncomplicated (principal)

== ENCOUNTER 2021-05-15 09:56 | Outpatient (CLI) | payer MEDICARE, OTHER ==
--- NOTE | 2021-05-15 15:13 | XRAY Report ---
PROCEDURE: Knee 3 View LT INDICATIONS: KNEE PAIN, LEFT TECHNIQUE: 3 views of the left knee(s) were acquired. COMPARISON: None. FINDINGS: Bones: No fractures or dislocations. No suspicious bony lesions. Moderate medial patellofemoral co mpartment osteoarthritis. Soft tissues: Small suprapatellar joint effusion. No suspicious soft tissue calcifications. IMPRESSION: 1. Moderate left knee medial and patellofemoral compartment arthritis. 2. Small nonspecific knee joint effusion. Reviewed by: Lakshmi Nelson MD, PhD on 05/15/2021 3:12 PM PDT Approved by: Lakshmi Nelson MD, PhD on 05/15/2021 3:12 PM PDT Station ID: [id number]
== END 2021-05-15 09:57 | disposition home or self-care (01) ==
LOC: DI.N 09:56
PROVIDERS: ATTEND Physician Assistant Medical
DX: M17.12 Unilateral primary osteoarthritis, left knee (principal); M25.462 Effusion, left knee

== ENCOUNTER 2021-12-17 09:20 | Outpatient (CLI) | payer MEDICARE, OTHER | END 2021-12-17 09:21 | disposition home or self-care (01) | LOC: DI 09:20 | PROVIDERS: ATTEND Physician Assistant | DX: I51.7 Cardiomegaly (principal); Q21.12 Patent foramen ovale | CPT/HCPCS: 93306 ==

== ENCOUNTER 2022-01-14 15:04 | Outpatient (CLI) | payer MEDICARE, OTHER | END 2022-01-14 15:05 | disposition home or self-care (01) | LOC: MAC.MOP 15:04 | PROVIDERS: ATTEND Physician Assistant | DX: R00.2 Palpitations (principal) | CPT/HCPCS: 93246 ==

== ENCOUNTER 2022-02-09 10:30 | Outpatient (CLI) | payer MEDICARE, OTHER | END 2022-02-09 10:31 | disposition home or self-care (01) | LOC: MAC.MOP 10:30 | PROVIDERS: ATTEND Internal Medicine | DX: I47.1 Supraventricular tachycardia (principal); I49.1 Atrial premature depolarization; I49.3 Ventricular premature depolarization; I49.8 Other specified cardiac arrhythmias | CPT/HCPCS: 93248 ==

== ENCOUNTER 2022-06-11 08:51 | Outpatient (CLI) | payer MEDICARE, OTHER ==
[2022-06-11 12:13] LABS: BASOPHILS % (AUTO) 0.5 %; EOSINOPHILS % (AUTO) 0.5 %; HCT - HEMATOCRIT 44.2 % (42.0-52.0); HGB - HEMOGLOBIN 14.7 g/dL (14.0-18.0); LYMPHOCYTES # (AUTO) 2.3 10^3/uL (1.5-3.5); LYMPHOCYTES % (AUTO) 29.6 %; MEAN CORPUSCULAR HEMOGLOBIN 30.5 pg (27.0-31.0); MEAN CORPUSCULAR HGB CONC 33.3 g/dL (32.0-36.0); MEAN CORPUSCULAR VOLUME 91.7 fL (80.0-94.0); MEAN PLATELET VOLUME 9.2 fL (7.4-11.4); MONOCYTES # (AUTO) 0.7 10^3/uL (0.0-1.0); NEUTROPHILS # (AUTO) 4.5 10^3/uL (1.5-6.6); NEUTROPHILS % (AUTO) 59.5 %; PLT - PLATELET COUNT 285 10^3/uL (130-450); RED BLOOD COUNT 4.82 10^6/uL (4.70-6.10); RED CELL DISTRIBUTION WIDTH 13.2 % (12.0-15.0); WHITE BLOOD COUNT 7.6 x10^3/uL (4.8-10.8)
[2022-06-11 12:42] LABS: ALBUMIN 3.9 g/dL (3.2-5.5); ALBUMIN/GLOBULIN RATIO 1.3 (1.0-2.2); ALKALINE PHOSPHATASE 51 IU/L (42-121); ALT ALANINE AMINOTRANSFERASE 26 IU/L (10-60); AST ASPARTATE AMINOTRANSFERASE 17 IU/L (10-42); BILIRUBIN,TOTAL 0.6 mg/dL (0.2-1.0); BUN - BLOOD UREA NITROGEN 29 mg/dL (6-20); CALCIUM 8.8 mg/dL (8.5-10.3); CARBON DIOXIDE - CO2 27 mmol/L (21-32); CHLORIDE 109 mmol/L (101-111); CHOL/HDL RATIO 3.8 (<5.0); CHOLESTEROL 220 mg/dL; CREATININE 0.7 mg/dL (0.6-1.2); GFR - MDRD 110 (>89); GLUCOSE 115 mg/dL (70-100); HDL CHOLESTEROL 58 mg/dL; LDL CHOLESTEROL,CALCULATED 134 mg/dL; LDL/HDL RATIO 2.3 (<3.6); POTASSIUM 4.3 mmol/L (3.5-5.0); SODIUM 140 mmol/L (135-145); TOTAL PROTEIN 6.8 g/dL (6.7-8.2); TRIGLYCERIDES 140 mg/dL; VLDL CHOLESTEROL 28 mg/dL
[2022-06-11 12:56] LABS: ESTIMATED AVERAGE GLUCOSE 134 mg/dL (70-100); HEMOGLOBIN A1c% 6.3 % (4.27-6.07)
== END 2022-06-11 08:52 | disposition home or self-care (01) ==
LOC: LAB.N 08:51
PROVIDERS: ATTEND Physician Assistant Medical
DX: E78.9 Disorder of lipoprotein metabolism, unspecified (principal); E53.8 Deficiency of other specified B group vitamins; R73.9 Hyperglycemia, unspecified; J45.909 Unspecified asthma, uncomplicated
CPT/HCPCS: 36415; 80053; 80061; 82607; 83036; 83721; 85025

== ENCOUNTER 2022-12-09 06:42 | Day surgery (SDC) | payer MEDICARE, OTHER ==
[2022-12-09] MEDS ORDERED: LACTATED RINGERS 1,000 ML IV ONE (07:00)
[2022-12-09] MEDS ORDERED: PROPOFOL 200 MG/20 ML VIAL IVP ONE (07:21)
[2022-12-09] MEDS ORDERED: LIDOCAINE-MPF 2% 5 ML VIAL ONE (07:21)
[2022-12-09] MEDS ORDERED: MIDAZOLAM 2 MG/2 ML VIAL ONE (07:21)
--- NOTE | 2022-12-09 07:41 | ANESTHESIA ---
Pre-Anesthesia VS, & Labs - Diagnosis barretts - Procedure EGD Vital Signs: Temp Pulse Resp BP Pulse Ox O2 Flow Rate 36.1 C L 74 16 149/96 H 96 12/09/22 07:05 12/09/22 07:05 12/09/22 07:05 12/09/22 07:05 12/09/22 07:05 Height: 5 ft 7 in Weight (kg): 85 kg Body Mass Index: 29.3 BMI Classification: Overweight - NPO >8 hours - Lab Results Lab results reviewed: Yes Home Medications and Allergies Albuterol Sulfate [Proair Hfa Inhaler] 2 puffs INH Q4H PRN 06/07/17 Cetirizine [ZyrTEC] 10 mg PO DAILY 06/07/17 Gabapentin 300 mg PO QPM 06/07/17 Losartan [Cozaar] 50 mg PO DAILY 06/07/17 Mecobalamin [B-12] 2,500 mcg PO DAILY 06/07/17 Multivit-Min/FA/Lycopen/Lutein [Centravites 50 Plus Tablet] 1 each PO DAILY 06/07/17 Allergies/Adverse Reactions: Allergies Allergy/AdvReac Type Severity Reaction Status Date / Time No Known Drug Allergies Allergy Verified 12/08/22 14:00 Anes History & Medical History - Anesthetic History Anesthesia Complications: reports: No previous complications Family history of Anesthesia Complications: Denies Family history of Malignant Hyperthermia: Denies - Medical History Cardiovascular: reports: None Pulmonary: reports: Asthma Gastrointestinal: reports: GERD Urinary: reports: Benign prostate hypertrophy Musculoskeletal: reports: None Endocrine/Autoimmune: reports: None Skin: reports: None Smoking Status: Never smoker History of Cancer?: No - Surgical History General: reports: Colonoscopy, EGD Orthopedic: reports: Knee replacement, Spine surgery Exam General: Alert, Oriented x3, Cooperative Dental: WNL Mouth Openin Fingerbreadth Neck Mobility: Normal Mallampati classification: II Thyromental Distance: 4-6 cm Respiratory: Lungs clear, Normal breath sounds, No respiratory distress, Wheezing (B LL, nebulizer this morning) Cardiovascular: Regular rate Mental/Cognitive Status: Alert/Oriented X3, Normal for patient Cognitive Status: Within normal limits Plan Anesthesia Type: Total IV Consent for Procedure(s) Verified and Reviewed: Yes Code Status: Attempt Resuscitation ASA classification: 2-Mild systemic disease Is this case an emergency?: No
[2022-12-09] MEDS ORDERED: LACTATED RINGERS 700 ML IV ONE ×2 (08:19)
[2022-12-09] MEDS ORDERED: IPRATROPIUM/ALBUTEROL 3 ML NEB INH PRN (08:30)
[2022-12-09] MEDS ORDERED: ALBUTEROL NEB 2.5 MG/3 ML INH ONE (08:40)
[2022-12-09 08:48] VITALS: BP 138/81; O2SAT 99
--- NOTE | 2022-12-09 10:56 | ANESTHESIA POST OP EVALUATION ---
Anesthesia Post Eval - Post Anesthesia Eval Vitals: Last Vital Signs Temp 36.0 C L 12/09/22 08:44 Pulse 65 12/09/22 08:44 Resp 16 12/09/22 08:44 BP 138/81 H 12/09/22 08:44 Pulse Ox 99 12/09/22 08:44 O2 Flow Rate CV Function Including HR & BP: Stable Pain Control: Satisfactory Nausea & Vomiting: Negative Mental Status: Baseline Respiratory Status: Airway Patent, Other (patient had some wheezing per RN upon arrival, improved with Duoneb and home without issue.) Hydration Status: Satisfactory Anesthesia Complications: None
== END 2022-12-09 06:43 | disposition home or self-care (01) ==
LOC: SDS 06:42
PROVIDERS: ATTEND Surgery
PROC: 0DB48ZX Excision of Esophagogastric Junction, Via Natural or Artificial Opening Endoscopic, Diagnostic (ICD-10-PCS; principal; 2022-12-09 08:00)
DX: Z09 Encounter for follow-up examination after completed treatment for conditions other than malignant neoplasm (principal); Z87.19 Personal history of other diseases of the digestive system; K21.00 Gastro-esophageal reflux disease with esophagitis, without bleeding; E11.42 Type 2 diabetes mellitus with diabetic polyneuropathy
CPT/HCPCS: 43239; J7120

== ENCOUNTER 2022-12-10 08:41 | Outpatient (CLI) | payer MEDICARE, OTHER ==
[2022-12-10 12:33] LABS: ESTIMATED AVERAGE GLUCOSE 137 mg/dL (70-100); HEMOGLOBIN A1c% 6.4 % (4.27-6.07)
[2022-12-10 12:36] LABS: ALBUMIN 4.1 g/dL (3.2-5.5); ALBUMIN/GLOBULIN RATIO 1.7 (1.0-2.2); ALKALINE PHOSPHATASE 63 IU/L (42-121); ALT ALANINE AMINOTRANSFERASE 16 IU/L (10-60); AST ASPARTATE AMINOTRANSFERASE 12 IU/L (10-42); BILIRUBIN,TOTAL 0.4 mg/dL (0.2-1.0); BUN - BLOOD UREA NITROGEN 13 mg/dL (6-20); CALCIUM 9.1 mg/dL (8.5-10.3); CARBON DIOXIDE - CO2 29 mmol/L (21-32); CHLORIDE 106 mmol/L (101-111); CHOL/HDL RATIO 3.6 (<5.0); CHOLESTEROL 211 mg/dL; CREATININE 0.7 mg/dL (0.6-1.3); GFR - MDRD 110 (>89); GLUCOSE 112 mg/dL (74-104); HDL CHOLESTEROL 59 mg/dL; LDL CHOLESTEROL,CALCULATED 121 mg/dL; LDL/HDL RATIO 2.1 (<3.6); POTASSIUM 4.1 mmol/L (3.5-4.5); SODIUM 139 mmol/L (135-145); TOTAL PROTEIN 6.5 g/dL (6.4-8.9); TRIGLYCERIDES 155 mg/dL (48-352); VLDL CHOLESTEROL 31 mg/dL
== END 2022-12-10 08:42 | disposition home or self-care (01) ==
LOC: LAB.N 08:41
PROVIDERS: ATTEND Physician Assistant Medical
DX: E78.5 Hyperlipidemia, unspecified (principal); R73.9 Hyperglycemia, unspecified
CPT/HCPCS: 36415; 80053; 80061; 83036; 83721

== ENCOUNTER 2023-04-13 13:00 | Outpatient (CLI) | payer MEDICARE, OTHER ==
--- NOTE | 2023-04-13 15:05 | XRAY Report ---
PROCEDURE: Lumbar Spine 2-3V INDICATIONS: LOW BACK PAIN TECHNIQUE: 2 views of the lumbar spine were acquired. COMPARISON: None. FINDINGS: Bones: 5 [id number] vertebrae are present. There is normal bony alignment. Multilevel loss of disc space height. Moderate osteophytes. Facet joint hypertrophy. No vertebral body compression fract ures. No suspicious bony lesions. Soft tissues: Overlying bowel gas pattern is normal. No suspicious soft tissue calcifications. IMPRESSION: Advanced DDD and degenerative changes. Reviewed by: Quique Lyman MD on 04/13/2023 3:04 PM PST Approved by: Quique Lyman MD on 04/13/2023 3:04 PM PST Station ID: [id number]
== END 2023-04-13 13:01 | disposition home or self-care (01) ==
LOC: DI 13:00
PROVIDERS: ATTEND Physician Assistant Medical
DX: M47.816 Spondylosis without myelopathy or radiculopathy, lumbar region (principal); M51.36 Other intervertebral disc degeneration, lumbar region

== ENCOUNTER 2023-08-27 13:40 | Outpatient (CLI) | payer MEDICARE, OTHER ==
--- NOTE | 2023-08-27 21:01 | XRAY Report ---
PROCEDURE: Hip w/Pelvis 2-3V LT INDICATIONS: ACUTE SCIATICA TECHNIQUE: 2 views of the hip were acquired. COMPARISON: Lumbar spine radiographs 04/13/2023. FINDINGS: Bones: No fractures or dislocations. Moderate degenerative changes at the left hip. [id number] degenerative changes of the right hip. No suspicious bony lesions. Degenerative changes of the lumba r spine. Soft tissues: No suspicious soft tissue calcifications or masses. IMPRESSION: Moderate left hip DJD. Reviewed by: Quique Lyman MD on 08/27/2023 9:00 PM PDT Approved by: Quique Lyman MD on 08/27/2023 9:00 PM PDT Station ID: [id number]
== END 2023-08-27 23:59 | disposition home or self-care (01) ==
LOC: DI.N 13:40
PROVIDERS: ATTEND Physician Assistant
DX: M54.30 Sciatica, unspecified side (principal); M16.12 Unilateral primary osteoarthritis, left hip